=== PATIENT | male | born 1955 | race Caucasian/White ===

== ENCOUNTER → 2021-04-27 11:36 | Outpatient (BNVA) | payer OTHER, SELFPAY | PROVIDERS: Family Provider Family Medicine; PCP Family Medicine; Referring Provider Emergency Medicine Emergency Medical Services; Visit Provider Orthopaedic Surgery | DX: M48.062 Spinal stenosis, lumbar region with neurogenic claudication (principal); M51.16 Intervertebral disc disorders with radiculopathy, lumbar region | CPT/HCPCS: 72110 ==

== ENCOUNTER → 2021-05-15 14:08 | Outpatient (BNVA) | payer OTHER, SELFPAY | PROVIDERS: PCP Family Medicine; Visit Provider Orthopaedic Surgery | DX: Z01.818 Encounter for other preprocedural examination (principal) | CPT/HCPCS: 87635 ==

== ENCOUNTER 2021-05-19 07:21 | Day surgery (SDC) | payer OTHER, SELFPAY ==
[2021-05-15 11:21] VITALS: BMI 24.4
--- NOTE | 2021-05-15 11:43 | ECG_ITS ---
[facility] Test Date: 2021-05-15 Pat Name: Felipe Sheikh Department: Room: Gender: Male Hoister: : 1955 Requested By: John Hernandez Order Number: [id number] Paz MD: Kassandra Avendano M.D. Measurements Intervals [place] Rate: 78 P: 73 DC: 202 QRS: 29 QRSD: 118 T: 49 QT: 383 QTc: 436 Interpretive Statements SINUS RHYTHM WITH OCCASIONAL VENTRICULAR PREMATURE COMPLEXES INFERIOR MYOCARDIAL INFARCTION , OF INDETERMINATE AGE [40+ ms Q WAVE AND/OR ST/T ABNORMALITY IN II/aVF] No previous ECG available for comparison Electronically Signed On 05-16-2021 5:30:37 RESIDENCE MANAGER by Kassandra Avendano M.D. [id number]
--- NOTE | 2021-05-15 12:37 | ANES.PREANE2 ---
Pre-Anesthetic Assessment Height/Weight: Height 1.65 m Weight 66.678 kg Operation Date: 05/19/21 10:10 Proposed Procedures p Lumbar Spine Decompression 27610,33250,50900,m48.062(Bilateral) - Bennett Tejada DO Familial anesthetic complications: None Was Beta Dread taken within 24 hours: N/A Was Clonidine taken within 24 hours: N/A Social Tobacco and No alcohol Airway Submandibular: within normal limits Cervical ROM: Other (Some limitation with extension) Dentition: false Pulmonary Chronic Obstructive Pulmonary Disease CV/HEM Coronary Artery Disease and Hypertension Metabolic Hyperlipidemia [facility] Lower Back Pain and Osteoarthritis/DJD Chronic pain Anesthetic Plan ASA status: 3 Anesthesia: General Risk of > 500 ml blood loss (7ml/kg in children): No Medications/Allergies Home Medications Medication Instructions Recorded Confirmed Last Taken Type gabapentin 300 mg capsule 300 mg PO TID 04/21/19 05/15/21 Unknown History ibuprofen 800 mg tablet 800 mg PO TID PRN 04/21/19 05/15/21 Unknown History losartan 100 mg tablet 100 mg PO ONCE 04/21/19 05/15/21 Unknown History simvastatin 40 mg tablet 40 mg PO ONCE 04/21/19 05/15/21 Unknown History amlodipine 10 mg tablet 10 mg PO DAILY 05/15/21 05/15/21 Unknown History Allergies Allergy/AdvReac Type Severity Reaction Status Date / Time No Known Allergies Allergy Unverified 05/15/21 11:17 [facility] Anesthesia Medical History Intervertebral disc disorder with radiculopathy of lumbosacral region Lumbar disc disease with radiculopathy Lumbar stenosis with neurogenic claudication Spondylolisthesis at L4-L5 level Surgical History History of hip replacement (~2016) Right, Dr. Codey hCaparro. Family History Mother Sciatic pain Pancreatic cancer Social History Smoking and tobacco status: current every day smoker (1 pack ) Alcohol intake: never Lives independently: Yes Household members: spouse Housing: House Marital status: service: Yes Current occupational status: disabled Current occupation: retired History of recent travel: No Data Anesthesia Cardiac Studies: No Data to Display
[2021-05-19] VITALS (8 sets, daily range): BP systolic 101–168; BP diastolic 73–96; PULSE 76–100; RESP 14–18; TEMP 36.1–36.6; O2SAT 93–97
--- NOTE | 2021-05-19 | XR_ITS ---
WS: [id number] INTRAOPERATIVE TECHNIQUE: 9 Spot fluoroscopic images for intraoperative purposes. FLUOROSCOPY TIME: 54.7 seconds CLINICAL INFORMATION: Lumbar stenosis COMPARISON: None. FINDINGS: Localization marker projected over the LEFT L5-S1 interspace, LEFT L4-L5 interspace, LEFT L3-L4 inter space, RIGHT L5-S1 interspace, RIGHT L4-L5 interspace, RIGHT L3-L4 interspace, and LEFT L5-S1 intersp jose a again. XR/XR lumbar spine 1V [id number] IMPRESSION: Images obtained for intraoperative purposes.
--- NOTE | 2021-05-19 | SCC_ITS ---
Procedure done: 1. Bilateral L3/4 laminectomy with partial facetectomies 2. Bilateral L4/5 laminectomy with partial facetectomies 3. Bilateral L5/S1 laminectomy with partial facetectomies 54.7 seconds of fluoroscopic guidance, for a cumulative dose of 12.45 mGy, was provided to Dr. Tejada by the radiology department. C-arm images of the lumbar spine were saved for the patient's permanent record. [facility]
[2021-05-19] MEDS: sodium chloride 0.9% 1,000 ML 30 ML IV (07:51)
--- NOTE | 2021-05-19 08:02 | P.ANESUD_ITS ---
Pre-Anesthetic Update Pre-Anesthetic Assessment: Date of Surgery/Procedure: 05/19/21 Preop Julissa gnosis: Lumbar stenosis with neurogenic claudication Proposed Procedure: Operation Date: 05/19/21 08:30 Proposed Procedures p Lumbar Spine Decompression L3/4,4/5,L5/S1 72607,72450,03861,m48.062(Bilateral) - Bennett Tejada, DO Any changes to Pre-Anesthetic Assessment?: No Last Intake: Intake Last Liquid Date 05/18/21 Last Liquid Time 18:00 Last Solid Date 05/18/21 Last Solid Time 18:00 Vitals: Temperature 97.9 F 05/19/21 07:30 Temperature Source Temporal Artery S can 05/19/21 07:30 Pulse Rate 100 05/19/21 07:30 Pulse Rhythm 05/19/21 07:38 Pulse Strength 3+ Normal 05/19/21 07:38 Respiratory Rate 16 05/19/21 07:30 Blood Pressure 140/77 05/19/21 07:30 Blood Pressure [place] n 98 05/19/21 07:30 Pulse Oximetry 97 05/19/21 07:30 Oxygen Delivery Me thod 05/19/21 07:38 Exam: Pre-Anes Outpt Exam: alert, oriented x 3, clear to auscultation bilaterally and regular rate & rhythm Cardiac Studies: No Data to Display
--- NOTE | 2021-05-19 08:53 | P.HPUD_ITS ---
Surgery/Procedure H&P Update DATE OF PROCEDURE: May 19, 2021 DATE H&P PERFORMED: 04/27/21 CHANGES TO PREVIOUS DOCUMENTATION: h=p reviewed no changes PREOP DIAGNOSIS: Lumbar stenosis with neurogenic claudication PLANNED PROCEDURE: Operation Date: 05/19/21 08:30 Proposed Procedures p Lumbar Spine Decompression L3/4,4/5,L5/S1 51655,93767,89856,m4 8.062(Bilateral) - Bennett Tejada, DO
--- NOTE | 2021-05-19 11:59 | PM.OP ---
Operative Report Date of procedure: May 19, 2021 Pre-op diagnosis: Preop Diagnosis Lumbar stenosis with neurogenic claudication Post-op diagnosis: same Procedure done: 1. Bilateral L3/4 laminectomy with partial facetectomies 2. Bilateral L4/5 laminectomy with partial facetectomies 3. Bilateral L5/S1 laminectomy with partial facetectomies Surgeon: Bennett Tejada Ring Packer: none Estimated blood loss (mL): 10 Procedure: 1. Bilateral L3/4 laminectomy with partial facetectomies 2. Bilateral L4/5 laminectomy with partial facetectomies 3. Bilateral L5/S1 laminectomy with partial facetectomies Patient is brought to the operative suite. After undergoing anesthesia they are placed in the prone position. All areas of impingement are well padded. Patient is then prepped and draped in the normal sterile fashion. A skin incision is made over the L3/4 level. This is confirmed under c-arm guidance. A series of dilators are passed and the tubular retractor is docked on the L3 lamina. A bovie is used to clear the soft tissue off the lamina and the L 3/4 facet joint. A high speed orlando is then used to perform the laminectomy and take down the medial aspect of the L 3/4 facet joint. A kerrison rongeure was then used to take down the remaining lamina and smooth the edged of the laminectomy up to the point where the ligamentum flavum attaches. Attention was then brought to the medial aspect of the facet joint. The remaining medial aspect of the superior and inferior aspect of the facet joint were taken down with the kerrison from the pedicle of L3 to L 4. The facet joint had significant hypertrophy. Attention was then brought to the Ligamentum Flavum. The ligament was taken down from the lamina of L3 to L4 and out medially to the remaining facet joint. The ligament was thick. The dura was then exposed. The dura was in good repair. The L3 nerve was then traced with a curette out the L3/4 foramen and found to be adequately decompressed. The L4 nerve was traced with a curette around the L4 pedicle. The lateral recess was opened with a kerrison helping to further decompress the L4 nerve. The tubular retractor was then inserted on to the contralateral sideusing a series of dialators. The bovie was used to take down the soft tissue on the spinous process. The high speed orlando was used to take down the spinous process and then the contralateral lamina of L3. The kerrison rongeur was used to take down the remaining lamina to the point where the ligamentum flavum attached and the ligamentum flavum was taken down from L3 to L4. The kerrison rongeur was then used to reach across and take down the medial aspect of the contralateral L3/4 facet joint.The currete was used to trace the contralateral L3 nerve out the L3/4 foramen to make sure it was decompressed adequatesly and the L4 was traced around the L4 pedicle. The lateral recess was opened further with the kerrison to ensure the L4 is adequately decompressed. Wound is then irrigated copiously with saline and surgiflo is used to stop any bleeding. The tubular retractor is removed and A skin incision is made over the L4/5 level. This is confirmed under c-arm guidance. A series of dilators are passed and the tubular retractor is docked on the L4 lamina. A bovie is used to clear the soft tissue off the lamina and the L 4/5 facet joint. A high speed orlando is then used to perform the laminectomy and take down the medial aspect of the L 4/5 facet joint. A kerrison rongeure was then used to take down the remaining lamina and smooth the edged of the laminectomy up to the point where the ligamentum flavum attaches. Attention was then brought to the medial aspect of the facet joint. The remaining medial aspect of the superior and inferior aspect of the facet joint were taken down with the kerrison from the pedicle of L4 to L 5. The facet joint had significant hypertrophy. Attention was then brought to the Ligamentum Flavum. The ligament was taken down from the lamina of L4 to L5 and out medially to the remaining facet joint. The ligament was thick. The dura was then exposed. The dura was in good repair. The L4 nerve was then traced with a curette out the L4/5 foramen and found to be adequately decompressed. The L5 nerve was traced with a curette around the L5 pedicle. The lateral recess was opened with a kerrison helping to further decompress the L5 nerve. The tubular retractor was then inserted on to the contralateral side using a series of dialators. The bovie was used to take down the soft tissue on the spinous process. The high speed orlando was used to take down the spinous process and then the contralateral lamina of L4. The kerrison rongeur was used to take down the remaining lamina to the point where the ligamentum flavum attached and the ligamentum flavum was taken down from L4 to L5. The kerrison rongeur was then used to reach across and take down the medial aspect of the contralateral L4/5 facet joint.The currete was used to trace the contralateral L4 nerve out the L4/5 foramen to make sure it was decompressed adequatesly and the L5 was traced around the L5 pedicle. The lateral recess was opened further with the kerrison to ensure the L5 is adequately decompressed. Wound is then irrigated copiously with saline and surgiflo is used to stop any bleeding. The tubular retractor is removed and A skin incision is made over the L5/S1 level. This is confirmed under c-arm guidance. A series of dilators are passed and the tubular retractor is docked on the L5 lamina. A bovie is used to clear the soft tissue off the lamina and the L 5/S1 facet joint. A high speed orlando is then used to perform the laminectomy and take down the medial aspect of the L 5/S1 facet joint. A kerrison rongeure was then used to take down the remaining lamina and smooth the edged of the laminectomy up to the point where the ligamentum flavum attaches. Attention was then brought to the medial aspect of the facet joint. The remaining medial aspect of the superior and inferior aspect of the facet joint were taken down with the kerrison from the pedicle of L5 to S1. The facet joint had significant hypertrophy. Attention was then brought to the Ligamentum Flavum. The ligament was taken down from the lamina of L5 to S1 and out medially to the remaining facet joint. The ligament was thick. The dura was then exposed. The dura was in good repair. The L5 nerve was then traced with a curette out the L5/S1 foramen and found to be adequately decompressed. The s1 nerve was traced with a curette around the S1 pedicle. The lateral recess was opened with a kerrison helping to further decompress the S1 nerve. The tubular retractor was then inserted on to the contralateral sideusing a series of dialators. The bovie was used to take down the soft tissue on the spinous process. The high speed orlando was used to take down the spinous process and then the contralateral lamina of L5. The kerrison rongeur was used to take down the remaining lamina to the point where the ligamentum flavum attached and the ligamentum flavum was taken down from L5 to S1. The kerrison rongeur was then used to reach across and take down the medial aspect of the contralateral L5/S1 facet joint.The currete was used to trace the contralateral L5 nerve out the L5/S1 foramen to make sure it was decompressed adequatesly and the S1 was traced around the S1 pedicle. The lateral recess was opened further with the kerrison to ensure the S1 is adequately decompressed. Wound is then irrigated copiously with saline and surgiflo is used to stop any bleeding. The tubular retractor is removed and the wound is closed with vicryl and monocryl suture. Glue is then used to protect the wound. A sterile dressing is then placed. Patient was then placed in the supine position and transferred to the PACU in stable condition.
[2021-05-19] MEDS: HYDROcodone-acetaminophen 5-325 mg Tablet 1 TAB PO (13:25)
--- NOTE | 2021-05-19 14:12 | ANE.PACU2 ---
Inpatient post-anesthesia follow up: Airway intact: Yes Vital signs: Temperature 97.9 F Pulse Rate 76 Respiratory Rate 14 Blood Pressure 143/90 Pulse Oximetry 94 Oxygen Delivery Me thod Room Air Oxygen Flow Rate 6 Fraction of Inspir ed Oxygen Hydration adequate: Yes Nausea and vomiting: No Pain level: 3 Mental status: Baseline
== END 2021-05-19 13:30 | disposition home or self-care (01) ==
PROVIDERS: PCP Family Medicine; Visit Provider Orthopaedic Surgery
PROC: (CPT 63005; principal; 2021-05-19 08:20)
DX: M48.062 Spinal stenosis, lumbar region with neurogenic claudication (principal); J44.9 Chronic obstructive pulmonary disease, unspecified; I25.10 Atherosclerotic heart disease of native coronary artery without angina pectoris; I10 Essential (primary) hypertension; E78.5 Hyperlipidemia, unspecified; M19.90 Unspecified osteoarthritis, unspecified site; F17.210 Nicotine dependence, cigarettes, uncomplicated
CPT/HCPCS: 63047; 63048 ×2; 72020; 76000; 93005; J0690; J1100; J2370; J2405; J2704; J2710; J3010; J3490; J7030

== ENCOUNTER 2021-07-13 12:35 | Outpatient (CLI) | payer OTHER, SELFPAY ==
--- NOTE | 2021-07-13 12:58 | USCV_ITS ---
Felipe Sheikh Age: 66 Gender: M : 1955 Exam Date: 07/13/2021 13:09 Ordering Phys: Ector Nash DO Technologist: AFSHIN Exam Location: [facility] [place] Indication: AAA Screening HISTORY: Diameter (cm) AP x Transverse x Length Velocity (cm/s) Waveform Prox Aorta: 2.01 x 1.95 x 67.40 Mid Aorta: 1.28 x 1.64 x 67.80 Distal Aorta: 1.48 x 1.96 x 59.50 Right Iliac Prox: 0.72 x 1.00 x 98.30 Left Iliac Prox: 0.74 x 0.84 x 119.00 Stent Prox Landing x x Aneurysmal Sac Max x x Lt Lat Sac Dim Rt Lat Sac Dim Stent Dist Landing x x Right Iliac Stent x x Left Iliac Stent x x Right Renal Art Left Renal Art FINDINGS: Comparison: none available. No evidence of abdominal aortic or bilateral iliac aneurysm. Ectatic abdominal aorta with evidence of atherosclerotic plaque noted. There is evidence of atherosclerotic plaque no significan stenosis in the right common iliac artery. There is evidence of atherosclerotic plaque no significan stenosis in the left common iliac artery. CONCLUSIONS No evidence of abdominal aortic or bilateral iliac aneurysm. Dr. Iraida Peters DO (Electronically Signed) Final Date: 13 July 2021 15:30 S
== END 2021-07-13 12:36 | disposition home or self-care (01) ==
PROVIDERS: PCP Family Medicine; Visit Provider Emergency Medicine Emergency Medical Services
DX: Z13.6 Encounter for screening for cardiovascular disorders (principal)
CPT/HCPCS: 76706

== ENCOUNTER 2021-09-19 12:58 | Outpatient (CLI) | payer OTHER, SELFPAY ==
--- NOTE | 2021-09-19 13:14 | USCV_ITS ---
Felipe Sheikh Age: 66 Gender: M : 1955 Exam Date: 09/19/2021 13:32 Ordering Phys: Ector Nash DO Technologist: Exam Location: [facility] [place] Indication: cca disease Risk Factors: Previous Vascular Surgery: Right Brachial BP: / Left Brachial BP: / Right Left Velocity (cm/s) Spectral Plaque Velocity (cm/s) Spectral Plaque Syst/Diast Broadening Syst/Diast Broadening 89.30/ 9.35 Hetro Prox CCA 70.60 / 12.10 Hetro 87.65/ 12.65 Hetro Mid CCA 71.70 / 12.10 Hetro 78.30/ 8.25 Hetro Distal CCA 65.10 / 12.10 Hetro 98.10/ 19.80 Hetro Prox ICA 147.60/ 23.30 Hetro 103.60/19.80 Hetro Mid ICA 135.20/ 18.60 Hetro 115.80/20.90 Hetro Distal ICA 107.20/ 20.20 Hetro 111.90 ECA 264.30 1.36 ICA/CCA 2.06 Antegrade Vertebral Antegrade 58.40/ 9.90 cm/s 67.60/ 14.80 cm/s Tri Subclavian Tri 174.5 0 CONCLUSIONS Intimal hyperplasia both common carotid arteries. Right ICA stenosis <50%. Mild atheromatous plaque right carotid bulb/ICA. Left ICA stenosis 50-69%. Moderate atheromatous plaque left carotid bulb/ICA. Normal antegrade Doppler flow noted in the right vertebral artery. Normal antegrade Doppler flow noted in the left vertebral artery. Leon Sanchez MD (Electronically Signed) Final Date: 19 September 2021 16:38 S
== END 2021-09-19 12:59 | disposition home or self-care (01) ==
LOC: RAD 12:59
PROVIDERS: PCP Family Medicine; Visit Provider Emergency Medicine Emergency Medical Services
DX: I77.3 Arterial fibromuscular dysplasia (principal); I65.23 Occlusion and stenosis of bilateral carotid arteries
CPT/HCPCS: 93880

== ENCOUNTER → 2022-05-30 08:24 | Outpatient (BNVA) | payer OTHER, SELFPAY | PROVIDERS: PCP Family Medicine; Visit Provider Podiatrist Foot & Ankle Surgery | DX: Q66.72 Congenital pes cavus, left foot (principal); R20.2 Paresthesia of skin | CPT/HCPCS: 73630; 99203 ==

== ENCOUNTER → 2022-09-25 13:42 | Outpatient (BNVA) | payer OTHER, SELFPAY | PROVIDERS: PCP Family Medicine; Visit Provider Podiatrist Foot & Ankle Surgery | DX: Q66.72 Congenital pes cavus, left foot (principal) | CPT/HCPCS: 99213 ==